=== PATIENT | male | born 1950 | race Caucasian/White ===

== ENCOUNTER 2020-10-08 00:59 | Emergency (ER) | payer BC ==
[~2020-10-08] VITALS: Ht 175.3 cm; Wt 124.7 kg
[2020-10-08 01:01] VITALS: Ht 175.3 cm; Wt 124.7 kg
[2020-10-08 02:43] VITALS: BP 194/96
== END 2020-10-08 02:47 | disposition home or self-care (01) ==
LOC: ED 00:59
DX: R05 Cough (principal); Z20.828 Contact with and (suspected) exposure to other viral communicable diseases